=== PATIENT | male | born 1995 | race Two or more races ===

== ENCOUNTER 2024-09-13 18:39 | Emergency (ER) | payer SELFPAY | END 2024-09-13 20:07 | disposition home or self-care (01) | LOC: CSHERS 18:39 | DX: Z71.1 Person with feared health complaint in whom no diagnosis is made (principal) | CPT/HCPCS: 99282 ==

== ENCOUNTER 2024-10-10 08:47 | Emergency (ER) | payer SELFPAY ==
[2024-10-10] MEDS ORDERED: Lidocaine Viscous Sol 2% 15 ml UD Cup ONE (09:35)
== END 2024-10-10 10:43 | disposition home or self-care (01) ==
LOC: CSHERS 08:47
DX: R09.A2 Foreign body sensation, throat (principal); F17.290 Nicotine dependence, other tobacco product, uncomplicated
CPT/HCPCS: 99283